=== PATIENT | male | born 1990 | race Asian ===

== ENCOUNTER 2017-05-15 21:49 | Emergency (ER) | payer OTHER ==
[~2017-05-15] VITALS: Ht 175.3 cm; Wt 59.5 kg
[2017-05-15 21:54] VITALS: Ht 175.3 cm; Wt 59.5 kg
[2017-05-16] MEDS ORDERED: AMO500 PO (02:06)
--- NOTE | 2017-05-16 02:17 | ERD ---
ER Documentation Chief Complaint Date/Time DATE: 05/16/17 TIME: 02:15 Chief Complaint unable to hear on left ear today HPI 27-year-old male presents here in emergency department for complaints of difficulty hearing from the left ear, patient was smoking today, heard a pop on his left ear, afterwards, he states that he was unable to hear very well, he started to have read in the earprior to having the symptoms. Patient denies any ear pain at this time. Patient denies any fever or chills. Patient denies any ear discharge. patient denies any trauma in the ear. ROS All systems reviewed and are negative except as per history of present illness. Medications Home Meds Active Scripts Amoxicillin* (Amoxicillin*) 500 Mg Cap, 500 MG PO TID for 7 Days, CAP Prov:CONCHA KRAFT NP 05/16/17 Allergies Allergies: Coded Allergies: No Known Allergy (Unverified , 05/15/17) PMhx/Soc Medical and Surgical Hx: pt denies Medical Hx, pt denies Surgical Hx FmHx Family History: No coronary disease, No diabetes, No other Physical Exam Vitals Vital Signs Date Time Temp Pulse Resp B/P Pulse Ox O2 Delivery O2 Flow Rate FiO2 05/15/17 21:54 97.7 90 20 123/74 98 Physical Exam GENERAL: The patient is well developed and appropriate for usual state of health, in no apparent distress. HEENT: Atraumatic. Ears: Left ear tympanic membrane noted to be perforated.Normal right tympanic membrane, no erythema or bulging. No ear canal swelling. No ear discharge. Nose: normal nasal turbinates, no erythema or swelling. Normal nasal discharge. Throat: oropharynx clear. No tonsillar swelling or tonsillar exudates. No lymphadenopathy. CHEST: Clear to auscultation bilaterally. There are no rales, wheezes or rhonchi. HEART: Regular rate and rhythm. No murmurs, clicks, rubs or gallops. No S3 or S4. ABDOMEN: Soft, nontender and nondistended. Good bowel sounds. No rebound or guarding. No gross peritonitis. No gross organomegaly or masses. No Bell sign or McBurney point tenderness. BACK: No midline or flank tenderness. EXTREMITIES: Equal pulses bilaterally. There is no peripheral clubbing, cyanosis or edema. No focal swelling or erythema. Full range of motion. Grossly neurovascularly intact. NEURO: Alert and oriented. Cranial nerves 2-12 intact. Motor strength in all 4 extremities with 5/5 strength. Sensation grossly intact. Normal speech and gait. SKIN: There is no apparent rash or petechia. The skin is warm and dry. HEMATOLOGIC AND LYMPHATIC: There is no evidence of excessive bruising or lymphedema. No gross cervical, axillary, or inguinal lymphadenopathy. Procedures/MDM Medical decision making: Patient symptoms is likely consistent with left TM perforation. No symptoms of otitis externa or mastoiditis. No foreign body in the ear. No cerumen impaction. Disposition: Home. Stable. Prescription was given for amoxicillin, is advised to follow-up with primary care doctor in 2-3 days for reevaluation of symptoms. Patient is advised to avoid using Q-tips to clean the ear. Patient is advised to return to emergency department for any worsening symptoms. Departure Diagnosis: Primary Impression: Tympanic membrane perforation Laterality: left Qualified Code: H72.92 - Perforation of left tympanic membrane Condition: Stable Patient Instructions: Eardrum Rupture (Perforation) CONCHA KRAFT NP May 16, 2017 02:17
== END 2017-05-16 02:21 | disposition home or self-care (01) ==
LOC: FTE 21:49
DX: H72.92 Unspecified perforation of tympanic membrane, left ear (principal)
CPT/HCPCS: 99283